=== PATIENT | female | born 1960 | race African-American/Black ===

== ENCOUNTER 2018-08-26 00:12 | Inpatient (IN) ==
[2018-08-26] MEDS ORDERED: NS 1,000 ML ONE (00:32)
[2018-08-26] MEDS ORDERED: NS 1,000 ML IV ONE (00:35)
[2018-08-26 01:02] LABS: BASO# 0.01 X1000 (0.0-0.2); BASO% 0.1 % (0.0-0.8); EOS% 0.1 % (0.0-10.0); HEMATOCRIT 43.6 % (37.0-47.0); HEMOGLOBIN 15.2 g/dL (12.0-16.0); IMM GRAN# 0.07 X1000 (0.0-0.04); IMM GRAN% 0.6 % (0.0-0.5); LYMPH# 1.44 X1000 (1.2-3.4); LYMPH% 11.9 % (20.5-51.1); MCH 26.9 PG (27-31); MCHC 34.8 g/dL (33-37); MCV 77.3 FL (81-99); MONO# 0.85 X1000 (0.11-0.59); MONO% 7.1 % (1.7-9.3); MPV 11.9 FL (7.4-10.4); NEUT# 9.63 X1000 (1.4-6.5); NEUT% 80.4 % (42.2-75.2); PLT 203 X1000 (130-400); RBC 5.72 XMIL (4.2-5.4); RDW 17.2 % (11.5-14.5); WBC 11.97 X1000 (4.8-10.8)
[2018-08-26] MEDS ORDERED: DILAUDID IV ONE (01:12)
[2018-08-26] MEDS ORDERED: ZOFRAN IV ONE (01:12)
[2018-08-26 01:21] LABS: AGAP 17; ALBUMIN 4.1 g/dL (3.5-5.0); ALKALINE PHOSPHATASE 138 U/L (32-104); AMYLASE 436 U/L (20-200); BUN 6 mg/dL (8-22); CALCIUM 9.3 mg/dL (8.8-10.2); CHLORIDE 100 mmol/L (98-107); COSMO 279; CREATININE 0.6 mg/dL (0.5-0.9); ESTIMATED GFR > 60; GLUCOSE 208 mg/dL (70-104); GOT 46 U/L (10-30); GPT 44 U/L (10-36); LIPASE 1736 U/L (13-60); POTASSIUM 4.2 mmol/L (3.5-5.1); SODIUM 138 mmol/L (136-145); TCO2 21 mmol/L (25-35); TOTAL PROTEIN 7.2 g/dL (6.3-8.3)
[2018-08-26] MEDS ORDERED: ROCEPHIN 1 GM in NS 50 ML IV ONE (02:01)
[2018-08-26 02:13] LABS: CLARITY SLIGHTLY CLOUDY (CLEAR); COLOR YELLOW; URINE BACTERIA 2+ /HFP; URINE EPITHELIAL CELLS <10 /HPF (<10); URINE RBC <10 /HPF (<10); URINE SOURCE CLEAN CATCH; URINE WBC <10 /HPF (<10)
[2018-08-26 02:14] LABS: BILIRUBIN URINE NEGATIVE (NEGATIVE); BLOOD URINE NEGATIVE (NEGATIVE); KETONE URINE 3+(Large) mg/dL (NEGATIVE); LEUKOCYTES URINE TRACE (NEGATIVE); NITRITE URINE NEGATIVE (NEGATIVE); PROTEIN URINE 1+(30 mg/dL) mg/dL (NEGATIVE); UROBILINOGEN URINE 1 mg/dL
[2018-08-26] MEDS ORDERED: APRESOLINE IV ONE (02:23)
--- NOTE | 2018-08-26 02:48 | PROVIDER DOCUMENTATION ---
This chart was entered by Crystal Alanis Scribe, acting as scribe for Adolfo Angulo MD. HPI-General Adult - General Chief Complaint: Nausea/Vomiting Stated Complaint: ABD PAIN Time Seen by Provider: 08/26/18 00:34 Source: patient Allergies/Adverse Reactions: Patient Allergies Allergy/AdvReac Type Severity Reaction Status Date / Time No Known Allergies Allergy Verified 03/02/18 10:54 Home Medications: Home Medication List Medication Instructions Recorded Confirmed Last Taken Type Amoxicillin 500 mg PO TID #30 cap 03/02/18 Unknown Rx Atenolol 50 mg PO DAILY #30 tab 03/02/18 Unknown Rx Cyanocobalamin (Vitamin B-12) 1,000 mcg PO DIRECTED 03/02/18 03/02/18 Unknown History [B-12] Levothyroxine Sodium [Synthroid] 25 mcg PO DIRECTED 03/02/18 03/02/18 Unknown History Lisinopril 10 mg PO DIRECTED 03/02/18 03/02/18 Unknown History Lisinopril 20 mg PO DAILY #30 tab 03/02/18 Unknown Rx Metformin [Glucophage] 500 mg PO DIRECTED 03/02/18 03/02/18 Unknown History PRAVAstatin [Pravachol] 40 mg PO DAILY 03/02/18 03/02/18 Unknown History - History of Present Illness -Gen Adult Nature of Presenting Problems: Pt is 58/F presenting to ED w/ n/v abd epigastric abd pain that started yesterday. Sts that she thought at first that it may be gas, but that it has not been relieved. Pt having a hard time standing up and sts that she feels cold and clammy. Location of Pain/Injury: reports: abdomen Pain Radiation: reports: no radiation Quality of Pain: reports: aching Severity: reports: moderate Onset/Duration: reports: 24 hours ago Timing: reports: still present Context/Activities at Onset: reports: none Modifying Factors: improves with: nothing Associated Symptoms: reports: nausea, vomiting. denies: chest pain, constipation, cough, diarrhea, shortness of breath Similar Symptoms Previously?: No Recently seen or treated by another doctor?: No Review of Systems - Adult - REVIEW OF SYSTEMS - ADULT Constitutional: reports: no symptoms reported. denies: chills, fever Eyes: reports: no symptoms reported Ears, Nose, Mouth & Throat: reports: no symptoms reported Cardiovascular: reports: no symptoms reported Respiratory: reports: no symptoms reported. denies: cough, shortness of breath, wheezing Gastrointestinal: reports: abdominal pain, nausea, vomiting Genitourinary: reports: no symptoms reported Musculoskeletal: reports: no symptoms reported Integumentary: reports: no symptoms reported Neurological: reports: no symptoms reported Psychiatric: reports: no symptoms reported Endocrine: reports: no symptoms reported Hematologic/Lymphatic: reports: no symptoms reported Allergic/Immunologic: reports: no symptoms reported All Other Systems: Reviewed and Negative Past History - Adult - PAST MEDICAL HISTORY-ADULT Review of Records: reports: Old Records Reviewed, Nursing Assessment Review, Medications Reviewed, Social history reviewed & non-contributory. Major Childhood Illnesses: reports: denies history Cardiovascular: reports: HTN, hyperlipidemia Respiratory: reports: denies history Gastrointestinal: reports: GERD Obstetrical/Gynecological: reports: denies history Genitourinary: reports: denies history Musculoskeletal: reports: neck/back injury (lower back pain) Neurological: reports: denies history Psychiatric: reports: denies history Endocrine/Immune: reports: Diabetes, thyroid disorder Other Conditions: reports: denies history - PRIOR SURGERIES/PROCEDURES Surgical/Procedure History: reports: hysterectomy, BTL, - IMMUNIZATION STATUS Childhood Immunizations: See Nurse Assessment Flu Vaccine: See Nurse Assessment - FAMILY HISTORY Family History: reviewed, not pertinent - SOCIAL HISTORY Smoking: cigarettes, greater than 1 pack/day Provider spent 3-5 mins advising pt. on dangers of tobacco.: Discussed manners to quit use, and f/u contacts for add'l counseling. Substance Use: alcohol Alcohol Use Frequency: 3-4 times a week Physical Exam-General - PHYSICAL EXAM-ADULT Initial Vital Signs Reviewed: Yes - CONSTITUTIONAL General Appearance: alert, no apparent distress, obese - EYES Eyes: PERRL/EOMI, pink conjunctivae - HEAD, EARS, NOSE, MOUTH & THROAT HENMT: normocephalic/atraumatic, moist mucous membranes, normal ENT inspection, TMs normal - NECK Neck: non-tender, full range of motion, supple, normal inspection - RESPIRATORY Respiratory: lungs clear - CARDIOVASCULAR Cardiovascular: tachycardia (120) - GASTROINTESTINAL (ABDOMEN) Abdominal Exam: normal bowel sounds, soft, tenderness (epigastric) - LYMPHATIC Lymphatic: no adenopathy - MUSCULOSKELETAL Back Exam: normal inspection Extremity: normal range of motion, non-tender, normal gait, normal inspection - SKIN Integumentary: normal color, warm/dry - NEUROLOGIC Neurologic: grossly normal - PSYCHIATRIC Psych/Mental Status: normal mood/affect, normal thought content, normal thought process, oriented x 3 Progress - PLAN OF CARE/RESULTS Progress/Plan/Lab Results: Vital Signs - 8 hr 08/26/18 00:28 08/26/18 00:43 08/26/18 00:52 Temperature 94.9 F L 100.0 F H Pulse Rate 120 H 105 H Respiratory Rate 18 20 Blood Pressure 75/54 102/76 O2 Sat by Pulse Oximetry 98 96 Laboratory Results - last 24 hr 08/26/18 00:35 POC Glucose 200 H Orders Category Date Time Status CT ABD/PELVIS W/IV CONT ONLY [CT] Stat Exams 08/26/18 00:45 Ordered AMYLASE [CHEM] Stat Lab 08/26/18 00:42 Received CBC WITH ELECTRONIC DIFF [HEME] Stat Lab 08/26/18 00:42 Results COMPREHENSIVE METABOLIC PANEL [CHEM] Stat Lab 08/26/18 00:42 Received LIPASE [CHEM] Stat Lab 08/26/18 00:[address] W/POSS RFLX CULT [URINALYSIS] Stat Lab 08/26/18 00:43 Uncol lected 0.9% Sodium Chloride Inj [Ns] 1,000 ml Med 08/26/18 00:32 Discontinued .ROUTE As directed 0.9% Sodium Chloride Inj [Ns] 1,000 ml Med 08/26/18 00:35 Active IV 999 mls/hr Result Diagrams: 08/26/18 00:42 08/26/18 00:42 - EKG 1 Time of EKG reading by physician:: 00:40 EKG Read and Signed by:: Adolfo Angulo EKG Interpretation (*Must complete 3 of following elements*): Abnormal (sinus tachycardia, Inferior infarct, age undetermined. Prolonged QT. Abnormal ECG) Rate: 104 Rhythm: sinus QRS: normal [place] Interval: normal - CT/MRI 1 CT Study: Abdomen Impression: Abnormal, See EMR Report (Findings of acute pancreatitis) - CONSULTS/PCP/HOSPITALIST Notification #1 *Consult/PCP/Hospitalist*: Jarad for Dr Edgar Time Discussed: 02:47 Consult Disposition: Admit Departure - Departure Date of Disposition Decision: 08/26/18 Time of Disposition Decision: 02:47 DIAGNOSIS: HTN (hypertension), Pancreatitis, UTI (urinary tract infection) Disposition: ADMITTED INPATIENT 09 Certified Medical Emergency: Emergent Condition: Fair Referrals and Follow-Ups: Easton Veronica Jr, MD [Primary Care Provider] - - Critical Care Note This patient required my direct & personal management of CC.: No Attestation - Physician/ ELIZABETH Attestation Patient care was provided by Advanced Practice Provider:: No The physician spent face to face time with patient:: Yes Advanced Practice Provider documentation review:: Supervising physician onsite and consulted in the evaluation and care of this patient. The physician did have a face to face encounter with the patient. This chart was documented by the indicated scribe, (Crystal Alanis, Eunice) and accurately reflects the services I performed and decisions made by me, Adolfo Angulo MD, as attested by the provider's signature.
[2018-08-26] MEDS ORDERED: DILAUDID IV PRN (04:40)
[2018-08-26] MEDS ORDERED: DILAUDID ONE (04:42)
[2018-08-26] MEDS ORDERED: TYLENOL PO PRN (06:04)
[2018-08-26] MEDS ORDERED: NS 1,000 ML IV SCH (06:04)
[2018-08-26] MEDS: DILAUDID IV PRN ×4 (07:24→23:11)
[2018-08-26 07:44] LABS: HEMOGLOBIN A1C 7.6 % (4.8-6.0)
--- NOTE | 2018-08-26 07:46 | Diag Imaging Result Doc PS360 ---
EXAM: CT ABD/PELVIS W/IV CONT ONLY HISTORY: abdo pain TECHNIQUE: CT abdomen and pelvis with intravenous contrast COMPARISON: None. FINDINGS: There is prominent inflammation about the pancreas. No pancreatic mass, pseudocyst, or calcifications. The spleen is not enlarged. There is prominent fatty infiltration of liver. No calcified gallstones or adjacent inflammation. There is thickening to the left adrenal gland. Normal right adrenal gland. Normal kidneys. No hydronephrosis. No aortic aneurysm. Mild atherosclerosis. No bowel obstruction. The uterus has been removed. The urinary bladder is distended and is normal. There is a small amount of free fluid in the pelvis. No pelvic mass. IMPRESSION: 1.Acute pancreatitis 2.Marked fatty infiltration of the liver 3.Hysterectomy 4.A preliminary report was given at 2:21 AM This exam was performed using automated exposure control, adjustment of mA or kV according to patient size, and/or use of iterative reconstruction technique. Electronically signed by Mitchell Solomon 08/26/2018 7:44 AM
[2018-08-26] MEDS ORDERED: LR 1,000 ML IV ONE (09:16)
[2018-08-26] MEDS ORDERED: LABETALOL IV PRN (09:18)
[2018-08-26] MEDS ORDERED: PRINIVIL PO SCH (09:30)
[2018-08-26] MEDS: HUMALOG (PARKWAY) SUBQ SCH ×4 (09:34→20:23)
[2018-08-26] MEDS: PRILOSEC PO SCH (09:34)
[2018-08-26] MEDS: TOPROL XL PO SCH (09:48)
[2018-08-26 10:03] LABS: BASO# 0.01 X1000 (0.0-0.2); BASO% 0.1 % (0.0-0.8); HEMATOCRIT 41.7 % (37.0-47.0); HEMOGLOBIN 14.4 g/dL (12.0-16.0); IMM GRAN# 0.08 X1000 (0.0-0.04); IMM GRAN% 0.5 % (0.0-0.5); LYMPH# 0.87 X1000 (1.2-3.4); LYMPH% 5.9 % (20.5-51.1); MCH 27.1 PG (27-31); MCHC 34.5 g/dL (33-37); MCV 78.4 FL (81-99); MONO# 1.18 X1000 (0.11-0.59); MPV 11.4 FL (7.4-10.4); NEUT# 12.59 X1000 (1.4-6.5); NEUT% 85.5 % (42.2-75.2); PLT 176 X1000 (130-400); RBC 5.32 XMIL (4.2-5.4); RDW 17.2 % (11.5-14.5); WBC 14.73 X1000 (4.8-10.8)
--- NOTE | 2018-08-26 10:11 | EKG Report ---
Test Performed on : 08/26/2018 09:38:53 AM Test Reason : tachycardia Blood Pressure : / mmHG Vent. Rate : 134 BPM Atrial Rate : 134 BPM P-R Int : 130 ms QRS Dur : 074 ms QT Int : 306 ms P-R-T Axes : 045 014 028 degrees QTc Int : 456 ms Sinus tachycardia. Possible Inferior infarct (cited on or before 12-MAY-2017) Abnormal ECG When compared with ECG of 26-AUG-2018 00:40, (Unconfirmed) No significant change was found Unconfirmed Result
[2018-08-26 10:22] LABS: AGAP 14; ALBUMIN 3.8 g/dL (3.5-5.0); ALKALINE PHOSPHATASE 124 U/L (32-104); BUN 6 mg/dL (8-22); CALCIUM 8.9 mg/dL (8.8-10.2); CHLORIDE 100 mmol/L (98-107); COSMO 283; CREATININE 0.8 mg/dL (0.5-0.9); ESTIMATED GFR > 60; GLUCOSE 234 mg/dL (70-104); GOT 34 U/L (10-30); GPT 35 U/L (10-36); LIPASE 1814 U/L (13-60); POTASSIUM 4.7 mmol/L (3.5-5.1); SODIUM 139 mmol/L (136-145); TCO2 25 mmol/L (25-35); TOTAL PROTEIN 6.6 g/dL (6.3-8.3)
[2018-08-26] MEDS: LR 1,000 ML IV SCH ×2 (10:48→18:06)
--- NOTE | 2018-08-26 11:03 | EKG Report ---
Test Performed on : 08/26/2018 00:40:14 AM Test Reason : ER Blood Pressure : / mmHG Vent. Rate : 104 BPM Atrial Rate : 104 BPM P-R Int : 150 ms QRS Dur : 070 ms QT Int : 400 ms P-R-T Axes : 045 006 022 degrees QTc Int : 526 ms Sinus tachycardia. Inferior infarct , age undetermined Prolonged QT Abnormal ECG When compared with ECG of 12-MAY-2017 08:17, Inferior infarct is now present QT has lengthened Unconfirmed Result
[2018-08-26 11:08] LABS: LYMPHS 6 % (21-51)
[2018-08-26 11:09] LABS: MONO 7 % (1-9); SEGS 87 % (42-75)
--- NOTE | 2018-08-26 12:53 | HISTORY AND PHYSICAL ---
PRIMARY CARE PHYSICIAN: Dr. Easton Veronica. CHIEF COMPLAINT: Nausea, vomiting and epigastric abdominal pain that began yesterday. HISTORY OF PRESENTING ILLNESS: This is a 58-year-old female who presents to [facility] ER with complaints of nausea, vomiting and epigastric, right upper quadrant abdominal pain that began the day prior. States she drinks approximately a 5th of liquor a day and has done that for the past year and a half. Her laboratory data showed an amylase of 436, lipase 1736. CT of the abdomen and pelvis showed acute pancreatitis. This morning, her heart rate went up into the 160s. She went to take a shower and her blood pressure dropped to 92/62 manually and so she was initially admitted to the medical unit and now it is felt that she needs to be transferred to our intensive care unit for closer monitoring and further evaluation and treatment. PAST MEDICAL HISTORY: Hypertension, hyperlipidemia, GERD, low back pain, diabetes type 2, hypothyroidism. PAST SURGICAL HISTORY: Of a hysterectomy, bilateral tubal ligation and a section. FAMILY HISTORY: Reviewed and noncontributory. SOCIAL HISTORY: She currently lives alone. Smokes a pack of cigarettes a day and has done so for the past 10 years. Drinks a 5th of a pint of liquor a day for the past year and a half and denies any illicit drug use. ALLERGIES: She has no known drug allergies. HOME MEDICATIONS: We are going to hold her metformin 500 mg p.o. daily. She will continue her lisinopril 30 mg p.o. daily and metoprolol 50 mg p.o. daily. LABORATORY DATA: Showed a white blood cell count of 11.97, hemoglobin 15.2, hematocrit 43.6, platelets 203,000. Sodium 138, potassium 4.2, chloride 100, CO2 21, BUN of 6, creatinine 0.6, glucose 208. Hemoglobin A1c was 7.6. AST of 46, ALT 44, alkaline phosphatase 138, amylase 436, lipase 1736. Urinalysis was negative except for 2+ bacteria. IMAGING: CT of the abdomen and pelvis showed acute pancreatitis, marked fatty infiltration of the liver. REVIEW OF SYSTEMS: She denied any fever, chills, blurred vision, dizziness, chest pain, coughing, shortness of breath, she was positive for epigastric and right upper quadrant abdominal pain, nausea, vomiting. She had some tachycardia. Denied any burning or hurting with urination. PHYSICAL EXAMINATION: VITAL SIGNS: On arrival, she had a temperature of 94.9, repeated 15 minutes later it was 100.0, pulse 120, respirations 18, blood pressure was 75/54 on arrival and after fluid resuscitation came up to 152/99. Was in sinus tach this morning at 155. Blood pressure dropped after she got up to take a shower to a manual of 92/62, so she has now been placed on strict bedrest. HEENT: Normocephalic, atraumatic. Normal ENT inspection. Oropharynx and nares are clear. EYES: Pupils are equal, round, reactive to light and accommodation. Extraocular movements are intact. NECK: Normal inspection, normal range of motion. LUNGS: Clear to auscultation bilaterally with equal lung expansion and chest wall movement. HEART: With regular rate and rhythm. No murmurs, rubs, or gallops. ABDOMEN: Soft. There is tenderness to palpation to the right upper quadrant and epigastric area. Bowel sounds are present x4 quadrants. MUSCULOSKELETAL: She had 5/5 strength x4 extremities. NEUROLOGICAL: The cranial nerves 2-12 appear grossly intact. ASSESSMENT: 1. Acute pancreatitis. 2. Ethanol abuse. 3. Hypotension. 4. Tachycardia both which are secondary to her EtOH withdrawal. 5. Tobacco abuse. 6. Ethanol abuse. PLAN: She was admitted to the medical unit initially but we are now transferring her to the intensive care unit. Continue on telemetry, n.p.o. We are going to obtain a right upper quadrant ultrasound. We will recheck CBC, CMP, lipase in the a.m. Place on Dilaudid 1 mg IV q.3-4 hours p.r.n., labetalol 20 mg IV q.4 hours p.r.n. for blood pressure greater than 180/100, but currently she is hypotensive. We are giving lactated Ringer's at 150 mL an hour, Rocephin 1 gram IV q.24. Will place an indwelling Steven catheter. Pattern blood sugars with sliding scale insulin. We are going to stop the Rocephin and place her on Zosyn 3.375 g IV q.6. Further orders after seen by attending. Dictated by FLORENCIA Cadena for Amarjit Edgar MD cc: FLORENCIA Cadena MD Roger H. Moss Jr, MD [facility]
--- NOTE | 2018-08-26 13:19 | Diag Imaging Result Doc PS360 ---
EXAM: US GB < RUQ (LIMITED) HISTORY: pancreatitis, evaluate for gallstones TECHNIQUE: Right upper quadrant ultrasound COMPARISON: 08/26/2018 CT FINDINGS: The pancreas is obscured. Normal gallbladder. No stones. The wall is not thickened. The common bile duct measures 3 mm. The liver is prominent and there is fatty infiltration. Normal right kidney. No hydronephrosis. The aorta and inferior vena cava are poorly seen. IMPRESSION: 1.Normal gallbladder 2.Prominent liver with fatty infiltration Electronically signed by Mitchell Solomon 08/26/2018 1:17 PM
[2018-08-26] MEDS: ZOFRAN IV PRN ×3 (13:33→23:12)
[2018-08-26 14:14] LABS: BILIRUBIN URINE NEGATIVE (NEGATIVE); BLOOD URINE TRACE (NEGATIVE); CLARITY CLEAR (CLEAR); COLOR AMBER; KETONE URINE 1+(Small) mg/dL (NEGATIVE); LEUKOCYTES URINE TRACE (NEGATIVE); NITRITE URINE NEGATIVE (NEGATIVE); PH URINE 6.5; PROTEIN URINE 1+(30 mg/dL) mg/dL (NEGATIVE); UROBILINOGEN URINE NORMAL
[2018-08-26 14:18] LABS: URINE BACTERIA 1+ /HFP; URINE CAST NONE SEEN /LPF; URINE CRYSTAL NONE SEEN /HPF; URINE EPITHELIAL CELLS <10 /HPF (<10); URINE RBC <10 /HPF (<10); URINE SOURCE CATH; URINE WBC <10 /HPF (<10); URINE YEAST NONE SEEN /HPF
[2018-08-26] MEDS ORDERED: NICODERM PATCH TD PRN (14:35)
[2018-08-26] MEDS: ZOSYN 3.375 GM in NS 50 ML IV SCH ×2 (15:00→20:23)
--- NOTE | 2018-08-26 19:05 | HISTORY AND PHYSICAL ---
SUBJECTIVE: This is a 58-year-old female, with history of hypertension, diabetes, who presents with abdominal pain and nausea and vomiting. She unfortunately is a heavy drinker. It has not always been the case, but she is drinking up to a fifth a day over the last year. She has not had any pancreatitis episodes before. She also smokes. She was admitted for acute pancreatitis based on her numbers and CT scan findings. Later in the morning of admission, she developed tachycardia and hypotension, heart rate in the 150s, blood pressure in the 80s. She was not tremulous or anything. This was after getting up and going to the shower. Her workup was consistent with pancreatitis and she was admitted for treatment. OBJECTIVE: She has pain in her upper quadrants, mostly in her epigastrium, not in her right upper quadrant. She also has other pain and she feels overall ill. PROBLEMS: 1. Acute pancreatitis. We will continue intravenous fluids, n.p.o. status. Pursue ultrasonography to evaluate for treatment. She is high risk for decompensation. We have moved her to the unit because of the hypotension and tachycardia. 2. Alcohol withdrawal syndrome is a possible event. We will continue to monitor for that. She is on as needed Ativan. We will continue to follow. 3. Diabetes. Follow blood sugars. Check A1c. Continue sliding scale insulin and monitor. 4. Transient hypotension. May be due to pancreatitis, possible early sepsis, versus just fluid sequestration. We will continue aggressive hydration and monitor. She has gotten a couple liters of fluid, but we will continue to monitor. DISPOSITION: Pending her clinical status. cc: Amarjit Edgar MD
[2018-08-27] MEDS: LR 1,000 ML IV SCH ×3 (00:12→15:02)
[2018-08-27] MEDS ORDERED: ROCEPHIN 1 GM in NS 50 ML IV SCH (02:00)
[2018-08-27] MEDS: ZOSYN 3.375 GM in NS 50 ML IV SCH ×4 (02:18→20:58)
[2018-08-27 06:01] LABS: BASO# 0.01 X1000 (0.0-0.2); BASO% 0.1 % (0.0-0.8); EOS# 0.07 X1000 (0.0-0.7); EOS% 0.4 % (0.0-10.0); HEMATOCRIT 39.3 % (37.0-47.0); HEMOGLOBIN 13.4 g/dL (12.0-16.0); IMM GRAN# 0.04 X1000 (0.0-0.04); IMM GRAN% 0.2 % (0.0-0.5); LYMPH# 1.25 X1000 (1.2-3.4); LYMPH% 6.4 % (20.5-51.1); MCH 26.7 PG (27-31); MCHC 34.1 g/dL (33-37); MCV 78.4 FL (81-99); MONO# 1.65 X1000 (0.11-0.59); MONO% 8.5 % (1.7-9.3); NEUT# 16.36 X1000 (1.4-6.5); NEUT% 84.4 % (42.2-75.2); PLT 147 X1000 (130-400); RBC 5.01 XMIL (4.2-5.4); RDW 17.1 % (11.5-14.5); WBC 19.38 X1000 (4.8-10.8)
[2018-08-27 06:16] LABS: HEMOGLOBIN A1C 7.2 % (4.8-6.0)
[2018-08-27 06:18] LABS: AGAP 11; BUN 6 mg/dL (8-22); CALCIUM 8.5 mg/dL (8.8-10.2); CHLORIDE 104 mmol/L (98-107); COSMO 279; CREATININE 0.5 mg/dL (0.5-0.9); ESTIMATED GFR > 60; GLUCOSE 143 mg/dL (70-104); POTASSIUM 3.6 mmol/L (3.5-5.1); SODIUM 140 mmol/L (136-145); TCO2 25 mmol/L (25-35)
[2018-08-27 06:20] LABS: AMYLASE 140 U/L (20-200); LIPASE 190 U/L (13-60); TRIGLYCERIDES 125 mg/dL (35-135)
[2018-08-27] MEDS: PRILOSEC PO SCH (06:30)
[2018-08-27] MEDS: ZOFRAN IV PRN (06:30)
[2018-08-27] MEDS: DILAUDID IV PRN ×3 (06:30→21:20)
[2018-08-27] MEDS: HUMALOG (PARKWAY) SUBQ SCH ×4 (06:31→21:15)
[2018-08-27 06:46] LABS: BANDS 5 % (0-1); LYMPHS 8 % (21-51); MONO 8 % (1-9); SEGS 76 % (42-75)
[2018-08-27 06:47] LABS: ANISOCYTOSIS 1+
[2018-08-27 06:49] LABS: HYPOCHROM 1+; LARGE PLATELETS OCCASIONAL; TARGET CELLS 1+
[2018-08-27 06:50] LABS: MICROCYTOSIS OCCASIONAL; OVALOCYTES OCCASIONAL; POIKILOCYTOSIS 2+; POLYCHROM OCCASIONAL; STOMATOCYTES OCCASIONAL
[2018-08-27] MEDS: TOPROL XL PO SCH (09:18)
[2018-08-27] MEDS: LIBRIUM PO SCH ×2 (15:01→20:58)
[2018-08-27] MEDS: PRINIVIL PO SCH (15:54)
[2018-08-27] MEDS ORDERED: LR 1,000 ML IV ONE (16:00)
[2018-08-27] MEDS: LR 500 ML IV ONE ×2 (16:03→16:05)
[2018-08-27 18:21] LABS: AGAP 11; ALKALINE PHOSPHATASE 113 U/L (32-104); BUN 5 mg/dL (8-22); CALCIUM 8.7 mg/dL (8.8-10.2); CHLORIDE 102 mmol/L (98-107); COSMO 275; CREATININE 0.5 mg/dL (0.5-0.9); ESTIMATED GFR > 60; GLUCOSE 130 mg/dL (70-104); GOT 23 U/L (10-30); GPT 20 U/L (10-36); POTASSIUM 3.9 mmol/L (3.5-5.1); SODIUM 138 mmol/L (136-145); TCO2 24 mmol/L (25-35)
--- NOTE | 2018-08-27 23:22 | PROGRESS NOTE ---
DATE: 08/27/2018 SUBJECTIVE: She feels better today, much improved. She still has a little bit of tremulousness, and pain is also improved. She feels thirsty. OBJECTIVE: Vital signs: Blood pressure is 162/94, heart rate of 100, respiratory rate 26, temperature 99 degrees; 97% on room air. Cardiovascular: Regular rate and rhythm. Pulmonary: Bilateral breath sounds clear to auscultation. Gastrointestinal: Soft, nontender, nondistended. Bowel sounds are positive. LABORATORY DATA: As described, actually white count went up, 19,000, hemoglobin and hematocrit 13 and 39, platelets 147,000. Her creatinine is 0.5. Her hematocrit is 39%, which is a marked improvement, she is below 44%. Her glucose is 131. Her lipase is down to 190 and her amylase is normal, which is a marked improvement in her pancreatitis. ASSESSMENT AND PLAN: 1. Acute pancreatitis. She is overall improved. I am going to give her a little bit of fluid. I think this is purely alcoholic or alcohol-induced pancreatitis. Her right upper quadrant is negative. There is no biliary abnormality. Triglycerides are normal. She is not on any high risk medications for pancreatitis, and she has significant alcohol history. 2. Alcohol withdrawal syndrome. She seems to be better. I am going to initiate Librium now that she can tolerate p.o. 3. Diabetes. Blood sugars are stable. Check A1c. Continue sliding scale. 4. Hypotension, now resolved. Now she is likely hypertensive, so we will resume her medications and follow closely. I think she is stable for the floor, so we are going to put her back on medicine/telemetry and see how she does. cc: Amarjit Edgar MD
[2018-08-28] MEDS: LR 1,000 ML IV SCH ×4 (01:25→17:34)
[2018-08-28] MEDS: ZOSYN 3.375 GM in NS 50 ML IV SCH ×4 (01:27→20:32)
[2018-08-28] MEDS: ATIVAN IV PRN (03:44)
[2018-08-28] MEDS: DILAUDID IV PRN ×2 (03:44→11:49)
[2018-08-28] MEDS: HUMALOG (PARKWAY) SUBQ SCH ×4 (06:18→20:32)
[2018-08-28] MEDS: PRILOSEC PO SCH (06:19)
[2018-08-28 07:45] LABS: BASO# 0.01 X1000 (0.0-0.2); BASO% 0.1 % (0.0-0.8); EOS% 0.6 % (0.0-10.0); HEMATOCRIT 35.4 % (37.0-47.0); HEMOGLOBIN 11.9 g/dL (12.0-16.0); IMM GRAN# 0.05 X1000 (0.0-0.04); IMM GRAN% 0.3 % (0.0-0.5); LYMPH# 1.24 X1000 (1.2-3.4); LYMPH% 7.8 % (20.5-51.1); MCH 26.5 PG (27-31); MCHC 33.6 g/dL (33-37); MCV 78.8 FL (81-99); MONO# 1.43 X1000 (0.11-0.59); NEUT# 13.07 X1000 (1.4-6.5); NEUT% 82.2 % (42.2-75.2); PLT 157 X1000 (130-400); RBC 4.49 XMIL (4.2-5.4); RDW 16.7 % (11.5-14.5)
[2018-08-28 07:52] LABS: MAGNESIUM 1.7 mg/dL (1.5-2.7)
[2018-08-28 08:40] LABS: LYMPHS 9 % (21-51); MONO 8 % (1-9); SEGS 83 % (42-75)
[2018-08-28 08:44] LABS: ANISOCYTOSIS 1+; POLYCHROM OCCASIONAL
[2018-08-28 08:45] LABS: POIKILOCYTOSIS 2+; TARGET CELLS 1+
[2018-08-28 08:46] LABS: HYPOCHROM 1+; OVALOCYTES OCCASIONAL
[2018-08-28] MEDS: PRINIVIL PO SCH (09:29)
[2018-08-28] MEDS: TOPROL XL PO SCH (09:30)
[2018-08-28] MEDS: LIBRIUM PO SCH ×2 (09:30→20:32)
--- NOTE | 2018-08-28 15:44 | PROGRESS NOTE ---
DATE: 08/28/2018 SUBJECTIVE: The patient has improved overall, she has no complaints about pain. She seems like she is doing better. OBJECTIVE: Blood pressure is 157/99, heart rate 99, respiratory 18, temperature 97.9 degrees, 99% on room air.Cardiovascular: Regular rate and rhythm. Pulmonary: Bilateral breath sounds clear to auscultation. GI: Soft, nontender, nondistended. Bowel sounds are positive. LABORATORY DATA: Her white count is 15, hemoglobin and hematocrit 11, 35, platelets 157,000 . Rest of her labs look okay. PROBLEM LIST: 1. Acute alcoholic pancreatitis. She seems to be doing better. She has requested to go home but when I evaluate her she said she was still having pain and did not want to go home so I am not quite sure. I am going to advance her diet and see how she does. 2. Leukocytosis may be reactive but she had been empirically placed on antibiotics because initially she came in with fairly significant pain and hypotension but that has all since resolved. We will repeat a chest x-ray and follow. 3. Alcohol withdrawal syndrome. Will continue titrate down her Librium. DISPOSITION: I think she is probably ready to go home soon I anticipate either today or tomorrow pending her clinical status. cc: Amarjit Edgar MD
--- NOTE | 2018-08-28 18:20 | Diag Imaging Result Doc PS360 ---
EXAM: CHEST-2 VIEWS HISTORY: hypoxia TECHNIQUE: Chest two views COMPARISON: 03/02/2018 FINDINGS: The lungs are well expanded. The heart is not enlarged. The vessels are not distended. There are increased interstitial markings in the right lower lobe with a small right pleural effusion. IMPRESSION: Small right basilar infiltrate with a small pleural effusion Electronically signed by Mitchell Solomon 08/28/2018 6:17 PM
[2018-08-28] MEDS: ZOFRAN IV PRN (20:36)
[2018-08-28] MEDS: NORCO-7.5 PO PRN (20:53)
[2018-08-29] MEDS: ZOFRAN IV PRN ×2 (00:55→09:01)
[2018-08-29] MEDS ORDERED: NS 50 ML ONE ×2 (02:09→02:12)
[2018-08-29] MEDS: ZOSYN 3.375 GM in NS 50 ML IV SCH ×5 (02:14→21:54)
[2018-08-29] MEDS: NORCO-7.5 PO PRN ×3 (02:15→09:18)
[2018-08-29] MEDS: LR 1,000 ML IV SCH ×2 (02:15→10:00)
[2018-08-29] MEDS: PRILOSEC PO SCH ×2 (05:53→07:58)
[2018-08-29 07:27] LABS: BASO# 0.01 X1000 (0.0-0.2); BASO% 0.1 % (0.0-0.8); EOS# 0.09 X1000 (0.0-0.7); EOS% 0.7 % (0.0-10.0); HEMATOCRIT 36.2 % (37.0-47.0); HEMOGLOBIN 12.3 g/dL (12.0-16.0); IMM GRAN# 0.06 X1000 (0.0-0.04); IMM GRAN% 0.5 % (0.0-0.5); LYMPH# 1.17 X1000 (1.2-3.4); LYMPH% 9.5 % (20.5-51.1); MCH 26.5 PG (27-31); MCV 77.8 FL (81-99); MONO# 1.43 X1000 (0.11-0.59); MONO% 11.6 % (1.7-9.3); NEUT# 9.61 X1000 (1.4-6.5); NEUT% 77.6 % (42.2-75.2); PLT 185 X1000 (130-400); RBC 4.65 XMIL (4.2-5.4); RDW 16.2 % (11.5-14.5); WBC 12.37 X1000 (4.8-10.8)
[2018-08-29] MEDS: HUMALOG (PARKWAY) SUBQ SCH ×4 (07:58→21:55)
[2018-08-29 08:16] LABS: LYMPHS 9 % (21-51); MONO 10 % (1-9); SEGS 81 % (42-75)
[2018-08-29] MEDS: TOPROL XL PO SCH (08:56)
[2018-08-29] MEDS: PRINIVIL PO SCH (08:56)
[2018-08-29] MEDS: LIBRIUM PO SCH ×2 (10:05→21:55)
[2018-08-29] MEDS: CARAFATE PO SCH ×3 (11:29→21:55)
--- NOTE | 2018-08-29 14:54 | PROGRESS NOTE ---
DATE: 08/29/2018 SUBJECTIVE: The patient has no new complaints. States she is still having some stomach pain. Still very weak. States that her abdomen seems to be a little bit worse today. Notes that she did drink a little bit yesterday and it caused pain. Did not attempt to eat anything. Denies any fevers or chills. Denies any diarrhea, constipation, melena, or hematochezia. PHYSICAL EXAMINATION: Temperature 98, pulse 88, respiratory rate 18, BP 165/90. General: Patient is awake. She is in no distress. She is lying in the bed. Does seem somewhat ill secondary to pain. HEENT: Normocephalic. Neck: Supple. Cardiovascular: Regular rate. No murmurs. Chest: Clear and unlabored. Abdomen: Soft, distended. Extremities: Moves all extremities. ASSESSMENT: 1. Nausea and vomiting. 2. Acute alcoholic pancreatitis. 3. Leukocytosis, improved. 4. Small infiltrate, right base. Continue antibiotics. 5. Chronic alcoholism. The patient states that she is going to stop. PLAN: We will continue the patient in the hospital. Continue fluids IV and oral today. Hopefully, she can improve and discharge home over the next 1 or 2 days. cc: Severiano Hernandez MD
[2018-08-29] MEDS: LABETALOL IV PRN (15:30)
[2018-08-29] MEDS: ATIVAN IV PRN (17:36)
[2018-08-30] MEDS: NORCO-7.5 PO PRN (00:01)
[2018-08-30] MEDS: LABETALOL IV PRN (00:34)
[2018-08-30] MEDS: ZOSYN 3.375 GM in NS 50 ML IV SCH ×3 (03:54→08:38)
[2018-08-30] MEDS: HUMALOG (PARKWAY) SUBQ SCH ×2 (06:05→10:23)
[2018-08-30] MEDS: PRILOSEC PO SCH (06:06)
[2018-08-30] MEDS: LIBRIUM PO SCH ×2 (07:46→08:39)
[2018-08-30] MEDS: CARAFATE PO SCH ×2 (07:46→10:23)
[2018-08-30] MEDS: LR 1,000 ML IV SCH (07:46)
[2018-08-30] MEDS: TOPROL XL PO SCH ×2 (07:47→08:38)
[2018-08-30] MEDS: PRINIVIL PO SCH ×2 (07:47→08:38)
[2018-08-30 07:48] LABS: HEMATOCRIT 35.3 % (37.0-47.0); HEMOGLOBIN 12.1 g/dL (12.0-16.0); MCH 26.4 PG (27-31); MCHC 34.3 g/dL (33-37); MCV 77.1 FL (81-99); MPV 12.4 FL (7.4-10.4); RBC 4.58 XMIL (4.2-5.4); WBC 9.14 X1000 (4.8-10.8)
[2018-08-30 08:10] LABS: AGAP 12; ALBUMIN 3.1 g/dL (3.5-5.0); ALKALINE PHOSPHATASE 144 U/L (32-104); AMYLASE 41 U/L (20-200); BUN 4 mg/dL (8-22); CALCIUM 8.6 mg/dL (8.8-10.2); CHLORIDE 101 mmol/L (98-107); COSMO 280; CREATININE 0.4 mg/dL (0.5-0.9); ESTIMATED GFR > 60; GLUCOSE 162 mg/dL (70-104); GOT 41 U/L (10-30); GPT 24 U/L (10-36); LIPASE 67 U/L (13-60); MAGNESIUM 1.9 mg/dL (1.5-2.7); POTASSIUM 3.1 mmol/L (3.5-5.1); SODIUM 140 mmol/L (136-145); TCO2 27 mmol/L (25-35); TOTAL PROTEIN 6.3 g/dL (6.3-8.3)
[2018-08-30] MEDS ORDERED: KLOR-CON PO ONE (08:32)
[2018-08-30 11:31] VITALS: BP 179/100
--- NOTE | 2018-08-30 15:27 | DISCHARGE SUMMARY ---
ADMISSION DATE: 08/26/2018 DISCHARGE DATE: 08/30/2018 PRIMARY CARE PHYSICIAN: Dr. Easton Veronica. DIAGNOSES: 1. Acute alcoholic pancreatitis. 2. Leukocytosis resolved. 3. Small infiltrate right base. 4. Chronic alcoholism. 5. Diabetes mellitus. DIAGNOSTICS: 1. CT of the abdomen and pelvis with IV contrast revealed acute pancreatitis, marked fatty infiltration of the liver, hysterectomy. 2. Abdominal ultrasound right upper quadrant limited revealed normal gallbladder, prominent liver with fatty infiltration. 3. Chest x-ray revealed small right basilar infiltrate with small pleural effusion. 4. Microbiology. Urine culture x2 revealed mixed rachele. HOSPITAL COURSE: Ms Kelly presented to the emergency room complaining of nausea, vomiting, epigastric pain. She was found to have acute alcoholic pancreatitis and to be in alcohol withdrawal. She was admitted to the intensive care unit, treated. We trended labs, hydrated with LR giving IV pain and nausea medications. She was initially hypotensive. Her antihypertensive medications were held, as blood pressures did increase we restarted her home medications. She was covered with Rocephin initially for antibiotics. This was stopped and she was placed on Zosyn. Diet has been advanced. She was able to eat 50% of her diet this morning and at lunch and thankfully she is ready for discharge. DISCHARGE PHYSICAL EXAM: Vital signs: Blood pressure is 170/90 with a heart rate of 96, respirations are 18, temperature is 98 degrees with room air saturations 95-98%. Cardiovascular: Regular rate and rhythm. S1 and S2 appreciated. Pulmonary: Breath sounds are clear. No increased work of breathing noted. Gastrointestinal: Abdomen soft, nontender, nondistended with bowel sounds in all 4 quadrants. Neurologic: She is alert, oriented x3. Extremities: She has no clubbing, cyanosis or edema. Calves are nontender bilateral. Skin is warm and dry. DISCHARGE MEDICATIONS: Lisinopril 30 mg p.o. daily, metformin 500 mg p.o. daily, metoprolol succinate 50 mg p.o. daily, Carafate 1 g a.c. and at bedtime, Omnicef 300 mg p.o. b.i.d. for 5 days, Z-Richard take as directed. FOLLOWUP: She is to follow up with Dr. Veronica in 1 week. At that time she will need to have a CMP, lipase and liver functions reevaluated. She has been instructed to return to the emergency room or call to be seen sooner for any syncope, dizziness, chest pain, palpitations, any recurring nausea, vomiting, diarrhea, constipation, black or bloody vomitus or stools, recurring abdominal pain or temperature greater than 101, a productive cough, any shortness of breath or for any questions or concerns that she may have. She is being discharged home in stable condition with family members. TIME SPENT: Greater than 30 minutes. Dictated by FLORENCIA Maradiaga for Severiano Hernandez MD cc: FLORENCIA Maradiaga MD
--- NOTE | 2018-09-02 00:51 | DISCHARGE SUMMARY ---
ADMISSION DATE: 08/26/2018 DISCHARGE DATE: 08/30/2018 DISCHARGE DIAGNOSES: 1. Acute alcoholic pancreatitis. 2. Acute alcohol withdrawal. 3. Chronic alcoholism. 4. Small right basilar pneumonia. 5. Leukocytosis, resolved. 6. Hypertension. 7. Chronic tobacco abuse. CONSULTATIONS: None. PROCEDURES: None. BRIEF HOSPITAL COURSE: Patient is a 58-year-old female who presented to the hospital secondary to abdominal pain, nausea, vomiting. Subsequently diagnosed with pancreatitis. This was due to her chronic alcoholism. She was admitted to the hospital, kept NPO, treated for alcohol withdrawal. Over the subsequent day, she was diagnosed with pneumonia, was placed on antibiotics. Continued to improve slowly secondary to her pancreatitis. Her diet was finally able to be advanced. On discharge, she was awake, alert. She was in no distress. She was still having mild abdominal pain but overall had improved. DISPOSITION: Patient will be discharged home. Discussed her that she has to stop drinking. Discussed she needs a soft nonfat diet for the next 2 days and advance as tolerated. Continue antibiotics for a total of 7 day treatment. He will follow up outpatient with primary care of her choice. Greater than 30 minutes was spent in total care. cc: Severiano Hernandez MD
== END 2018-08-30 14:24 | disposition home or self-care (01) | DRG 438 ==
LOC: P.ED 00:12 → SUATTDRO 04:32 → P.MEDSURG 04:32 → P.ICU 12:42 → P.MEDSURG 08-27 17:43
PROVIDERS: ATTEND Family Medicine
CPT/HCPCS: 71020; 71046; 74177; 76705; 80048; 80053; 81001; 82150; 82948; 83036; 83690; 83735; 84478; 85025; 85027; 87088; 93005; 96361; 96365; 96375; 96376; 99285; A9270; J0360; J0696; J1170; J1815; J2060; J2405; J2543; J7030; J7120; Q9967; XXXXX